=== PATIENT | female | born 1970 | race Caucasian/White ===

== ENCOUNTER 2022-10-23 19:38 | Inpatient (IN) | payer OTHER, SELFPAY ==
[2022-10-23 20:05] VITALS: BP 129/77; PULSE 72; RESP 18; TEMP 36.6; BMI 33.4
--- NOTE | 2022-10-23 21:21 | PC.ADMIT ---
Delfina is being admitted from [facility] on a CV for Unspecified Depressive disorder. She is calm and cooperative and oriented X's4. Her mood is labile and that patient was observed crying intermittently during the admission. she denies suicidal/homicidal ideation but endorses depression/anxiety and visual/auditory hallucinations. I wasn't sure what I was seeing. I saw an old boy friend of mine from 30 years ago and he was beautiful. Then I heard some of the voices get really mad because I was happy that I had seen him. I really don't know what's going on I don't know if this is like a vision sent from God or if my thyroid is causing me to have these hallucinations. I've never experienced anything like this before. patient is religiously preoccupied asking if we have [employer] Counselor's here, because I really want to talk to someone who understands the Bible Patient also stated that she used to have a counselor but it didn't work out because she wasn't a [employer]ism so we didn't see eye to eye light bruising noted to her bilateral forearms, patient stated that they did that to me in the ambulance patient oriented to the unit, Care plan initiated
[2022-10-24 07:54] LABS: Estimated Average Glucose 114 mg/dL; Hemoglobin A1c % 5.6 % (<6.0)
[2022-10-24 08:11] LABS: Alanine Aminotransferase 9 U/L (0-31); Albumin Level 3.9 g/dL (3.5-5.0); Alkaline Phosphatase 118 U/L (39-117); Anion Gap 11 (12-20); Aspartate Amino Transferase 13 U/L (5-31); Bilirubin Total 0.2 mg/dL (0.0-1.0); Blood Urea Nitrogen 22 mg/dL (9-16); Calcium 9.4 mg/dL (8.4-10.2); Carbon Dioxide 24 mmol/L (22-29); Chloride 110 mmol/L (96-108); Cholesterol 206 mg/dL (<200); Creatinine Clr Calc Pharmacy 84.4; Estimated Glomerular Filt Rate > 60; Glucose Fasting 106 mg/dL (60-99); HDL Cholesterol 52 mg/dL (>40); LDL Cholesterol Calculated 134 mg/dL (<100); Potassium 4.1 mmol/L (3.3-5.1); Sodium 141 mmol/L (135-145); Total Protein 6.7 g/dL (6.5-8.0); Triglycerides 102 mg/dL (<150)
[2022-10-24 08:27] LABS: Thyroid Stimulating Hormone 0.51 uIU/mL (0.32-4.0)
[2022-10-24 08:30] VITALS: BP 133/75; PULSE 74; RESP 16; TEMP 36.5; O2SAT 97
[2022-10-24 08:38] LABS: Vitamin B12 884 pg/mL (200-900)
[2022-10-24] MEDS: Lidocaine 4 % Patch ADH..PATCH 1 PATCH TRANSDERMA (09:46)
[2022-10-24] MEDS: lisinopriL 5 MG TABLET PO (09:48)
[2022-10-24] MEDS: Cyanocobalamin (Vitamin B-12) 1,000 MCG TABLET 1000 MCG PO (09:48)
[2022-10-24] MEDS: DULoxetine HCl 60 MG CAPSULE.DR PO (09:48)
[2022-10-24] MEDS: Famotidine 20 MG TABLET PO ×2 (09:48→21:34)
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
[2022-10-24] MEDS: Cholecalciferol (Vitamin D3) 25 MCG TABLET 50 MCG PO (09:49)
[2022-10-24] MEDS: Atorvastatin Calcium 20 MG TABLET PO (09:50)
--- NOTE | 2022-10-24 10:46 | P.CONHOSP_ITS ---
History of Present Illness Data of Consult Service Date: 10/24/22 Primary Care Provider: Unknown Physician HPI 52-year-old woman with history of hypertension, hyperlipidemia, depression and anxiety admitted to for psychiatric care. She reported complaints of right ear pain without fever, chills, nausea, vomiting, diarrhea. , no fever. BMP within normal limits Review of Systems 2 Review of Systems: Denies any recent fever chills or decrease in appetite respiratory denies shortness of breath or cough cardiovascular and chest pain gastrointestinal denied nausea, vomiting, diarrhea genitourinary denied burning with urination neuropsych denies any weakness or seizures all other systems reviewed are negative [facility] Medical History (Updated 11/07/22 @ 00:02 by Zena Monroy) Anxiety Depression Hyperlipidemia Hypertension Pertinent family history: no cardiac disease Surgical History (Updated 10/24/22 @ 11:06 by Tana Mccormack NP) S/P tubal ligation H/O hernia repair Social History (Updated 10/24/22 @ 11:06 by Tana Mccormack NP) Household Members: None Housing: House Do you presently have visiting nurse or other home services: No Patient Tobacco Use Status: Current someday Tobacco user Tobacco use type: Cigarette Cigarettes Per Day: 3 e-Cigarette/Vaping Use: Currently Using Second Hand Smoke Exposure: Yes service: No Sexual orientation: Straight/Heterosexual Meds Allergies Allergy/AdvReac Type Severity Reaction Status Date / Time No Known Allergies Allergy Verified 10/23/22 21:15 Active Medications: Current Medications Acetaminophen (Acetaminophen 325 Mg Tablet) 650 mg PO Q6H PRN PRN Reason: Headache/Pain Mild Scale (1-3) Al Hydroxide/Mg Hydroxide (Magnesium Hydrox/Alum Hydrox 30 Ml Oral.Susp) 30 ml PO Q6H PRN PRN Reason: Heartburn/Nausea Atorvastatin Calcium (Atorvastatin Calcium 20 Mg Tablet) 20 mg PO DAILY [facility] Last Admin: 10/24/22 09:50 Dose: 20 mg Cyanocobalamin (Cyanocobalamin (Vitamin B-12) 1,000 Mcg Tablet) 1,000 mcg PO DAILY [facility] Last Admin: 10/24/22 09:48 Dose: 1,000 mcg Duloxetine HCl (Duloxetine Hcl 60 Mg Capsule.Dr) 60 mg PO DAILY [facility] Last Admin: 10/24/22 09:48 Dose: 60 mg Famotidine (Famotidine 20 Mg Tablet) 20 mg PO BID [facility] Last Admin: 10/24/22 09:48 Dose: 20 mg Hydroxyzine HCl (Hydroxyzine Hcl 25 Mg Tablet) 25 mg PO TID PRN PRN Reason: Anxiety Lidocaine (Lidocaine 4 % Patch Adh..Patch) 1 patch TRANSDERMA DAILY [facility]; Protocol Last Admin: 10/24/22 09:46 Dose: 1 patch Lisinopril (Lisinopril 5 Mg Tablet) 5 mg PO DAILY [facility]; Protocol Last Admin: 10/24/22 09:48 Dose: 5 mg Magnesium Hydroxide (Milk Of Magnesia 30 Ml Oral.Susp) 30 ml PO DAILY PRN PRN Reason: Constipation Trazodone HCl (Trazodone Hcl 50 Mg Tablet) 50 mg PO BEDTIME MRX1 PRN PRN Reason: Insomnia Vitamin D (Cholecalciferol (Vitamin D3) 25 Mcg Tablet) 50 mcg PO DAILY [facility] Last Admin: 10/24/22 09:49 Dose: 50 mcg Home Medications Medication Instructions Recorded Confirmed Last Taken Type atorvastatin 20 mg tablet 20 mg PO DAILY 10/23/22 10/23/22 Unknown History cholecalciferol (vitamin D3) 50 50 mcg PO DAILY 10/23/22 10/23/22 Unknown History mcg (2,000 unit) capsule cyanocobalamin (vitamin B-12) 1,000 mcg PO DAILY 10/23/22 10/23/22 Unknown History 1,000 mcg tablet duloxetine 60 mg capsule,delayed 60 mg PO DAILY 10/23/22 10/23/22 Unknown History release famotidine 20 mg tablet 20 mg PO BID 10/23/22 10/23/22 Unknown History hydroxyzine HCl 25 mg tablet 25 mg PO TID PRN Anxiety 10/23/22 10/23/22 Unknown History lisinopril 5 mg tablet 5 mg PO DAILY 10/23/22 10/23/22 Unknown History Physical Exam 2 Vital Signs and Narrative: Vital Signs: Last Vital Signs Temp 97.9 F 10/23/22 20:05 Pulse 72 10/23/22 20:05 Resp 18 10/23/22 20:05 BP 129/77 10/23/22 20:05 O2 Flow Rate 98 10/23/22 20:05 BMI result Body Mass Index 33.4 Appearing in no acute distress lung sounds are clear to auscultation heart regular rate rhythm, clear S1, S2 positive bowel sounds, abdomen is soft, nontender neuro patient is alert x3, no focal deficits right ear no erythema, very minimal amount of wax noted, tympanic membrane intact with no drainage Cranial nerves 2-12 are grossly intact without focal deficits Results Labs 10/24/22 07:21 Labs: Laboratory Results - last 24 hr 10/24/22 07:21 Anion Gap 11 L Estim Creat Clear Calc 84.4 Estimated GFR > 60 Fasting Glucose 106 H Estimat Average Glucose 114 Hemoglobin A1c % 5.6 Calcium 9.4 Total Bilirubin 0.2 AST 13 ALT 9 Alkaline Phosphatase 118 H Total Protein 6.7 Albumin 3.9 Triglycerides 102 Cholesterol 206 H LDL Cholesterol, Calc 134 H HDL Cholesterol 52 Vitamin B12 884 Folate 9.0 TSH 0.51 Assessment and Plan (1) Hypertension: Status: Acute Plan 52-year-old woman admitted to [facility] for psychiatric care Mental health Management as per psychiatric team Right ear pain otoscopic exam negative May use warm packs or Tylenol Hypertension Stable blood pressure Continue lisinopril Hyperlipidemia Continue statin Time Spent With Patient Time: Total time managing care of this patient today ____ minutes. Assessment and Plan (1) Hypertension: Status: Acute Plan 52-year-old woman admitted to [facility] for psychiatric care Mental health Management as per psychiatric team Right ear pain otoscopic exam negative May use warm packs or Tylenol Hypertension Stable blood pressure Continue lisinopril Hyperlipidemia Continue statin Time Spent With Patient Time: Total time managing care of this patient today ____ minutes.
[2022-10-24] MEDS: risperiDONE 1 MG TABLET PO ×2 (13:40→21:35)
[2022-10-24 18:00] VITALS: BP 97/52; PULSE 75; RESP 18; TEMP 36.2; O2SAT 94
--- NOTE | 2022-10-24 19:03 | PC.NURSE ---
Patient denied having SI/HI or VH when asked by this narrative writer. She reported she has voices but they were not commanding here to do anything and tolerable. Patient seen by hospitalist this shift see progress note for 10/24/22 for details. Patient c/o of lower back pain and r ear discomfort. Tylenol offered for both, but patient declined. Hot pack utilized for 4/10 right ear pain with relief reported of 1/10 after use. Patient educated about using prn APAP for pain. Per patient, I don't want to use that, thanks. I'm going to rest in bed. No futher c/o voiced. Patient medication compliant. She is making her needs known appropriately. Patient did not shower this shift, but reported she will later. No unsafe behavior noted.
[2022-10-24] MEDS: LORazepam 0.5 MG TABLET PO (21:34)
[2022-10-25 06:00] VITALS: BP 112/67; PULSE 106; RESP 16; TEMP 36.6; O2SAT 98
[2022-10-25] MEDS: Lidocaine 4 % Patch ADH..PATCH 1 PATCH TRANSDERMA (08:12)
[2022-10-25] MEDS: Famotidine 20 MG TABLET PO ×2 (08:14→22:21)
[2022-10-25] MEDS: Atorvastatin Calcium 20 MG TABLET PO (08:15)
[2022-10-25] MEDS: risperiDONE 1 MG TABLET PO (08:15)
[2022-10-25] MEDS: Cholecalciferol (Vitamin D3) 25 MCG TABLET 50 MCG PO (08:15)
[2022-10-25] MEDS: Cyanocobalamin (Vitamin B-12) 1,000 MCG TABLET 1000 MCG PO (08:15)
[2022-10-25] MEDS: DULoxetine HCl 60 MG CAPSULE.DR PO (08:16)
[2022-10-25] MEDS: Acetaminophen 325 MG TABLET 650 MG PO (08:16)
[2022-10-25] MEDS: lisinopriL 5 MG TABLET PO (08:53)
[2022-10-25 09:30] VITALS: BP 105/60; PULSE 78
--- NOTE | 2022-10-25 14:04 | PC.NURSE ---
Addendum entered by Soo Moreno RN 10/25/22 18:29: Patient c/o itch with runny nose to T/W. Delfina appeared anxious and asked for allergy medication. Atarax 25mg given with effect pending. Gudelia Mckeon [employer]WER notified at 1809. Per BLOCKER AND SEWER, Yes will add flonase. No issues noted or reported by patient. Original Note: Patient alert Ox3, but reported to T/W not sure why she was here or why. Patient c/o of dizziness with feeling nausea at the start of shift. She reported that she woke up feeling this way, but was able to ambulate with a steady gait. Vitals obtained but patient declined to have standing b/p due to feeling nausea. B/p 112/57 with heart rate of 106. Patient denied having a h/a but did report having lower back pain. She utilized her PRN tylenol 650mg at 0816 wtih effect reported shortly after. Patient given 240 ml of eduard alexa to drink and encourage to take po fluids. Patient also took her scheduled pepcid, then ate her breakfast without issues. Gudelia Mckeon [employer] aware and patient had no further c/o of dizziness noted.. B/p rechecked and 105/60. Patient appears stable and ambulating ad liza without issues.
[2022-10-25] MEDS: hydrOXYzine HCL 25 MG TABLET PO (17:58)
--- NOTE | 2022-10-25 18:39 | P.PNPSI_ITS ---
Subjective Subjective Date of Service: 10/25/22 Reason For Visit: Unspecified Depressive Disorder Brief Psychotic Di Subjective Notes: Conditional Voluntary Interim History: Pt presents as more clear today. She was surprised to hear how her daughter found her and her concerns. She reports hearing voices, but less today. She denies Si/HI. She appears less tearful. She reports she slept good. She also reports dizziness, lightheaded. SBP lower than her usual and suspect some ortho hotn s/s to risperidone- will lower dose. Review of Systems Review of Systems No chest pain. No changes in vision. No diarrhea or loose stools. No SOB. No coughing. Mental Status Exam Mental Status Exam Narrative: Appearance: wearing hospital gown, fair hygiene, in NAD Behavior:guarded Psychomotor:some retardation noted Speech:mostly clear, some delayed in response, spontaneous TP:single words, mostly linear TC:mandaeism preoccupation, feeling sad Mood: sad Affect: tearful SI: denies HI: denies VH/AH: hearing voices of God Delusions: mandaeism preoccupations, not fully forthcoming with extend of delusional content. Insight/judgment: fair x 2. Memory/cog: alert, oriented x 3. Diagnostics Vital Signs (24Hr): Vital Signs - 24 hr 10/25/22 06:00 10/25/22 09:30 Temperature 97.9 F Pulse Rate 106 H 78 Respiratory Rate 16 Blood Pressure 112/67 105/60 Pulse Oximetry 98 Oxygen Delivery Method Room Air BMI result Body Mass Index 33.4 Labs 10/24/22 07:21 Labs: Laboratory Results - last 48 hr 10/24/22 07:21 Sodium 141 Potassium 4.1 Chloride 110 H Carbon Dioxide 24 Anion Gap 11 L BUN 22 H Creatinine 0.76 Estim Creat Clear Calc 84.4 Estimated GFR > 60 Fasting Glucose 106 H Estimat Average Glucose 114 Hemoglobin A1c % 5.6 Calcium 9.4 Total Bilirubin 0.2 AST 13 ALT 9 Alkaline Phosphatase 118 H Total Protein 6.7 Albumin 3.9 Triglycerides 102 Cholesterol 206 H LDL Cholesterol, Calc 134 H HDL Cholesterol 52 Vitamin B12 884 Folate 9.0 TSH 0.51 Medications Medications Current Medications Acetaminophen (Acetaminophen 325 Mg Tablet) 650 mg PO Q6H PRN PRN Reason: Headache/Pain Mild Scale (1-3) Last Admin: 10/25/22 08:16 Dose: 650 mg Al Hydroxide/Mg Hydroxide (Magnesium Hydrox/Alum Hydrox 30 Ml Oral.Susp) 30 ml PO Q6H PRN PRN Reason: Heartburn/Nausea Atorvastatin Calcium (Atorvastatin Calcium 20 Mg Tablet) 20 mg PO DAILY [facility] Last Admin: 10/25/22 08:15 Dose: 20 mg Cyanocobalamin (Cyanocobalamin (Vitamin B-12) 1,000 Mcg Tablet) 1,000 mcg PO DAILY [facility] Last Admin: 10/25/22 08:15 Dose: 1,000 mcg Duloxetine HCl (Duloxetine Hcl 60 Mg Capsule.Dr) 60 mg PO DAILY [facility] Last Admin: 10/25/22 08:16 Dose: 60 mg Famotidine (Famotidine 20 Mg Tablet) 20 mg PO BID [facility] Last Admin: 10/25/22 08:14 Dose: 20 mg Hydroxyzine HCl (Hydroxyzine Hcl 25 Mg Tablet) 25 mg PO TID PRN PRN Reason: Anxiety Last Admin: 10/25/22 17:58 Dose: 25 mg Lidocaine (Lidocaine 4 % Patch Adh..Patch) 1 patch TRANSDERMA DAILY [facility]; Protocol Last Admin: 10/25/22 08:12 Dose: 1 patch Lisinopril (Lisinopril 5 Mg Tablet) 5 mg PO DAILY [facility]; Protocol Last Admin: 10/25/22 08:53 Dose: 5 mg Lorazepam (Lorazepam 0.5 Mg Tablet) 0.5 mg PO BID PRN PRN Reason: Anxiety Magnesium Hydroxide (Milk Of Magnesia 30 Ml Oral.Susp) 30 ml PO DAILY PRN PRN Reason: Constipation Olanzapine (Olanzapine 5 Mg Tablet) 5 mg PO Q6H PRN PRN Reason: agitation Risperidone (Risperidone 0.5 Mg Tablet) 0.5 mg PO BID [facility] Trazodone HCl (Trazodone Hcl 50 Mg Tablet) 50 mg PO BEDTIME PRN PRN Reason: Insomnia Vitamin D (Cholecalciferol (Vitamin D3) 25 Mcg Tablet) 50 mcg PO DAILY [facility] Last Admin: 10/25/22 08:15 Dose: 50 mcg Allergies Allergies Allergy/AdvReac Type Severity Reaction Status Date / Time No Known Allergies Allergy Verified 10/23/22 21:15 Assessment & Plan Assessment & Plan (1) Severe manic bipolar 1 disorder with psychotic behavior: Status: Acute Code(s): F31.2 - Bipolar disorder, current episode manic severe with psychotic features Plan Ms. Rangel is a 52 year-old woman with hx of Bipolar disorder who was brought via EMS to [facility] ED due to increased mandaeism preoccupations, disorganized speech after daughter went to pt's house and pt had shades down, house was disorganized (which daughter reported uncharacteristic of her), and pt was staring with minimal verbalization.Utox positive for cannabinoids, which she reports using recently at suggestion of her daughter to relax . Pt has prior hx of of psychosis, depression with mandaeism preoccupation. She presents with mixed episode. Pt with hx of bipolar, may not have been treated properly as mostly prescribed antidepressants which was exacerbated by THC use. We discussed risks, benefits and alternative treatment options. Pt agreed to start risperidone. May consider mood stabilizer. PLAN 10/25- will lower risperidone d/t ortho hotn, if continues to report dizziness may want to consider different antipsychotic. Flonase for stuffy nose. Patient educated on: diagnosis and medication risk/benefits Informed Consent: understands Reason for continued inpatient stay Substantial Risk for: harm to self Time Spent With Patient Time: Total time managing care of this patient today __40__ minutes.
[2022-10-25] MEDS: Fluticasone Propionate Nasal 16 GM SPRAY 1 SPRAY NOSTRIL-B ×2 (19:13→22:20)
[2022-10-25 22:15] VITALS: BP 102/58; PULSE 110; TEMP 36.6; O2SAT 95
[2022-10-25] MEDS: risperiDONE 0.5 MG TABLET PO (22:21)
[2022-10-26 08:38] VITALS: BP 100/59; PULSE 93; RESP 18; TEMP 36.1; O2SAT 96
[2022-10-26] MEDS: DULoxetine HCl 60 MG CAPSULE.DR PO (08:39)
[2022-10-26] MEDS: Famotidine 20 MG TABLET PO ×2 (08:39→22:12)
[2022-10-26] MEDS: lisinopriL 5 MG TABLET PO (08:40)
[2022-10-26] MEDS: risperiDONE 0.5 MG TABLET PO (08:40)
[2022-10-26] MEDS: Cyanocobalamin (Vitamin B-12) 1,000 MCG TABLET 1000 MCG PO (08:40)
[2022-10-26] MEDS: Cholecalciferol (Vitamin D3) 25 MCG TABLET 50 MCG PO (08:40)
[2022-10-26] MEDS: Atorvastatin Calcium 20 MG TABLET PO (08:40)
[2022-10-26] MEDS: Lidocaine 4 % Patch ADH..PATCH 1 PATCH TRANSDERMA (08:42)
[2022-10-26] MEDS: Fluticasone Propionate Nasal 16 GM SPRAY 1 SPRAY NOSTRIL-B ×2 (09:00→22:12)
--- NOTE | 2022-10-26 13:21 | HO.PSYCHPN ---
Subjective Subjective Date of Service: 10/26/22 Reason For Visit: Unspecified Depressive Disorder Brief Psychotic Di Subjective Notes: Conditional Voluntary Interim History: Reviewed in team and . Patient reports feeling better today. Patient stated, I took a shower, I ate breakfast and taking my meds . Patient stated, I was seeing spirits but I'm no longer seeing them. I used to see black shadows 5 years ago; they never bothered me. Sometimes I hear voices but the voices protect me and would tell me if I'm in danger. They happen now and then . Pt denies SI/HI/VH/AH at this time. Patient reports she would like a referral to a Hindu psychiatrist and therapist ; drug abuse social worker aware. Medication Compliance: Yes Side effects from medications: No Attending Groups: Intermittent Review of Systems Constitutional: Reports as per HPI Eyes: Reports as per HPI Reports as per HPI Cardiovascular: Reports as per HPI Respiratory: Reports as per HPI Gastrointestinal: Reports as per HPI Genitourinary: Reports as per HPI Musculoskeletal: Reports as per HPI Skin/Breast: Reports as per HPI Reports as per HPI Psychiatric: Reports as per HPI Endocrine: Reports as per HPI Hematologic/Lymphatic: Reports as per HPI Allergic/Immunologic: Reports as per HPI Mental Status Exam Mental Status Exam Narrative: Pt is alert and oriented; behavior is cooperative, calm and guarded; dressed in casual attire; mood is described as better ; eye contact appropriate; Speech is normal rate, volume and prosody and not pressured; no psychomotor agitation/retardation present; thought process is organized and goal directed; Thought content is on tx; reports some christianity delusions; denies SI/HI. There is no evidence of perceptual disturbance. Patients insight and judgment are poor but improving. Diagnostics Vital Signs (24Hr): Vital Signs - 24 hr 10/25/22 22:15 10/26/22 08:38 Temperature 97.8 F 97.0 F Pulse Rate 110 H 93 Respiratory Rate 18 Blood Pressure 102/58 L 100/59 L Pulse Oximetry 95 96 Oxygen Delivery Method Room Air Room Air BMI result Body Mass Index 33.4 Labs 10/24/22 07:21 Medications Medications Current Medications Acetaminophen (Acetaminophen 325 Mg Tablet) 650 mg PO Q6H PRN PRN Reason: Headache/Pain Mild Scale (1-3) Last Admin: 10/25/22 08:16 Dose: 650 mg Al Hydroxide/Mg Hydroxide (Magnesium Hydrox/Alum Hydrox 30 Ml Oral.Susp) 30 ml PO Q6H PRN PRN Reason: Heartburn/Nausea Atorvastatin Calcium (Atorvastatin Calcium 20 Mg Tablet) 20 mg PO DAILY [facility] Last Admin: 10/26/22 08:40 Dose: 20 mg Cyanocobalamin (Cyanocobalamin (Vitamin B-12) 1,000 Mcg Tablet) 1,000 mcg PO DAILY [facility] Last Admin: 10/26/22 08:40 Dose: 1,000 mcg Duloxetine HCl (Duloxetine Hcl 60 Mg Capsule.Dr) 60 mg PO DAILY [facility] Last Admin: 10/26/22 08:39 Dose: 60 mg Famotidine (Famotidine 20 Mg Tablet) 20 mg PO BID [facility] Last Admin: 10/26/22 08:39 Dose: 20 mg Fluticasone Propionate (Fluticasone Propionate Nasal 16 Gm [place]) 1 spray NOSTRIL-B BID [facility] Last Admin: 10/26/22 09:00 Dose: 1 spray Hydroxyzine HCl (Hydroxyzine Hcl 25 Mg Tablet) 25 mg PO TID PRN PRN Reason: Anxiety Last Admin: 10/25/22 17:58 Dose: 25 mg Lidocaine (Lidocaine 4 % Patch Adh..Patch) 1 patch TRANSDERMA DAILY [facility]; Protocol Last Admin: 10/26/22 08:42 Dose: 1 patch Lisinopril (Lisinopril 5 Mg Tablet) 5 mg PO DAILY [facility]; Protocol Last Admin: 10/26/22 08:40 Dose: 5 mg Lorazepam (Lorazepam 0.5 Mg Tablet) 0.5 mg PO BID PRN PRN Reason: Anxiety Magnesium Hydroxide (Milk Of Magnesia 30 Ml Oral.Susp) 30 ml PO DAILY PRN PRN Reason: Constipation Risperidone (Risperidone 1 Mg Tablet) 1 mg PO BEDTIME [facility] Trazodone HCl (Trazodone Hcl 50 Mg Tablet) 50 mg PO BEDTIME PRN PRN Reason: Insomnia Vitamin D (Cholecalciferol (Vitamin D3) 25 Mcg Tablet) 50 mcg PO DAILY [facility] Last Admin: 10/26/22 08:40 Dose: 50 mcg Allergies Allergies Allergy/AdvReac Type Severity Reaction Status Date / Time No Known Allergies Allergy Verified 10/23/22 21:15 Assessment & Plan Assessment & Plan (1) Severe manic bipolar 1 disorder with psychotic behavior: Status: Acute Code(s): F31.2 - Bipolar disorder, current episode manic severe with psychotic features Plan Ms. Rangel is a 52 year-old woman with hx of Bipolar disorder who was brought via EMS to [facility] ED due to increased christianity preoccupations, disorganized speech after daughter went to pt's house and pt had shades down, house was disorganized (which daughter reported uncharacteristic of her), and pt was staring with minimal verbalization.Utox positive for cannabinoids, which she reports using recently at suggestion of her daughter to relax . Pt has prior hx of of psychosis, depression with christianity preoccupation. She presents with mixed episode. Pt with hx of bipolar, may not have been treated properly as mostly prescribed antidepressants which was exacerbated by THC use. We discussed risks, benefits and alternative treatment options. Pt agreed to start risperidone. May consider mood stabilizer. PLAN 10/25- will lower risperidone d/t ortho hotn, if continues to report dizziness may want to consider different antipsychotic. Flonase for stuffy nose. 10/26: Patient reports feeling better today. Patient stated, I took a shower, I ate breakfast and taking my meds . Patient stated, I was seeing spirits but I'm no longer seeing them. I used to see black shadows 5 years ago; they never bothered me. Sometimes I hear voices but the voices protect me and would tell me if I'm in danger. They happen now and then . Pt denies SI/HI/VH/AH at this time. Patient reports she would like a referral to a Hindu psychiatrist and therapist ; drug abuse social worker aware. Pt asked for Risperidal to be changed to HS; dose change to 1mg PO bedtime. Pt educated regarding taking her time before standing and walking. Patient educated on: diagnosis, medication risk/benefits and therapeutic strategies Informed Consent: understands Reason for continued inpatient stay Substantial Risk for: med/psych decompensation Time Spent With Patient Time: Total time managing care of this patient today _30___ minutes.
[2022-10-26 22:07] VITALS: BP 93/52; PULSE 79; TEMP 36.6; O2SAT 98
[2022-10-26 22:09] VITALS: BP 89/53; PULSE 80
[2022-10-26 22:10] VITALS: BP 94/55; PULSE 76
[2022-10-26] MEDS: risperiDONE 1 MG TABLET PO (22:12)
[2022-10-27 08:36] VITALS: BP 107/60; PULSE 83; RESP 18; TEMP 36.4; O2SAT 95
[2022-10-27] MEDS: Cyanocobalamin (Vitamin B-12) 1,000 MCG TABLET 1000 MCG PO (08:37)
[2022-10-27] MEDS: DULoxetine HCl 60 MG CAPSULE.DR PO (08:37)
[2022-10-27] MEDS: lisinopriL 5 MG TABLET PO (08:37)
[2022-10-27] MEDS: Cholecalciferol (Vitamin D3) 25 MCG TABLET 50 MCG PO (08:37)
[2022-10-27] MEDS: Atorvastatin Calcium 20 MG TABLET PO (08:37)
[2022-10-27] MEDS: Famotidine 20 MG TABLET PO ×2 (08:37→20:59)
[2022-10-27] MEDS: Lidocaine 4 % Patch ADH..PATCH 1 PATCH TRANSDERMA (08:38)
--- NOTE | 2022-10-27 08:57 | HO.PSYCHPN ---
Subjective Subjective Date of Service: 10/27/22 Reason For Visit: Unspecified Depressive Disorder Brief Psychotic Di Subjective Notes: Conditional Voluntary Interim History: Reviewed in team and . Patient c/o stuffy nose, sore throat and dizziness. Covid test ordered. Results pending. She reports feeling good mentally ; pt stated, I saw spirits at home but not here. The voices and seeing spirits all started in 2014, a year after my grandchild . I've only had anxiety and depression in my life. I think smoking marijuana did this to me . Pt is requesting to speak with pastoral services; RN notified. denies SI/HI/VH/AH. Medication Compliance: Yes Side effects from medications: No Attending Groups: Intermittent Review of Systems Review of Systems No chest pain. No changes in vision. No diarrhea or loose stools. No SOB. No coughing. Constitutional: Reports as per HPI Eyes: Reports as per HPI Reports as per HPI Cardiovascular: Reports as per HPI Respiratory: Reports as per HPI Gastrointestinal: Reports as per HPI Genitourinary: Reports as per HPI Musculoskeletal: Reports as per HPI Skin/Breast: Reports as per HPI Reports as per HPI Psychiatric: Reports as per HPI Endocrine: Reports as per HPI Hematologic/Lymphatic: Reports as per HPI Allergic/Immunologic: Reports as per HPI Mental Status Exam Mental Status Exam Narrative: Pt is alert and oriented; behavior is cooperative, calm; dressed in casual attire; mood is described as better ; eye contact appropriate; Speech is normal rate, volume and prosody and not pressured; no psychomotor agitation/retardation present; thought process is organized and goal directed; Thought content is on tx; reports some congregation delusions; denies SI/HI. There is no evidence of perceptual disturbance. Patients insight and judgment are poor but improving. Diagnostics Vital Signs (24Hr): Vital Signs - 24 hr 10/26/22 22:07 10/26/22 22:09 10/26/22 22:10 Temperature 97.8 F Pulse Rate 79 80 76 Respiratory Rate Blood Pressure 93/52 L 89/53 L 94/55 L Pulse Oximetry 98 Oxygen Delivery Method Room Air 10/27/22 08:36 Temperature 97.6 F Pulse Rate 83 Respiratory Rate 18 Blood Pressure 107/60 Pulse Oximetry 95 Oxygen Delivery Method Room Air BMI result Body Mass Index 33.4 Labs 10/24/22 07:21 Medications Medications Current Medications Acetaminophen (Acetaminophen 325 Mg Tablet) 650 mg PO Q6H PRN PRN Reason: Headache/Pain Mild Scale (1-3) Last Admin: 10/25/22 08:16 Dose: 650 mg Al Hydroxide/Mg Hydroxide (Magnesium Hydrox/Alum Hydrox 30 Ml Oral.Susp) 30 ml PO Q6H PRN PRN Reason: Heartburn/Nausea Atorvastatin Calcium (Atorvastatin Calcium 20 Mg Tablet) 20 mg PO DAILY [facility] Last Admin: 10/27/22 08:37 Dose: 20 mg Cyanocobalamin (Cyanocobalamin (Vitamin B-12) 1,000 Mcg Tablet) 1,000 mcg PO DAILY [facility] Last Admin: 10/27/22 08:37 Dose: 1,000 mcg Duloxetine HCl (Duloxetine Hcl 60 Mg Capsule.Dr) 60 mg PO DAILY [facility] Last Admin: 10/27/22 08:37 Dose: 60 mg Famotidine (Famotidine 20 Mg Tablet) 20 mg PO BID [facility] Last Admin: 10/27/22 08:37 Dose: 20 mg Fluticasone Propionate (Fluticasone Propionate Nasal 16 Gm [place]) 1 spray NOSTRIL-B BID [facility] Last Admin: 10/26/22 22:12 Dose: 1 spray Hydroxyzine HCl (Hydroxyzine Hcl 25 Mg Tablet) 25 mg PO TID PRN PRN Reason: Anxiety Last Admin: 10/25/22 17:58 Dose: 25 mg Lidocaine (Lidocaine 4 % Patch Adh..Patch) 1 patch TRANSDERMA DAILY [facility]; Protocol Last Admin: 10/27/22 08:38 Dose: 1 patch Lisinopril (Lisinopril 5 Mg Tablet) 5 mg PO DAILY [facility]; Protocol Last Admin: 10/27/22 08:37 Dose: 5 mg Lorazepam (Lorazepam 0.5 Mg Tablet) 0.5 mg PO BID PRN PRN Reason: Anxiety Magnesium Hydroxide (Milk Of Magnesia 30 Ml Oral.Susp) 30 ml PO DAILY PRN PRN Reason: Constipation Risperidone (Risperidone 1 Mg Tablet) 1 mg PO BEDTIME [facility] Last Admin: 10/26/22 22:12 Dose: 1 mg Trazodone HCl (Trazodone Hcl 50 Mg Tablet) 50 mg PO BEDTIME PRN PRN Reason: Insomnia Vitamin D (Cholecalciferol (Vitamin D3) 25 Mcg Tablet) 50 mcg PO DAILY [facility] Last Admin: 10/27/22 08:37 Dose: 50 mcg Allergies Allergies Allergy/AdvReac Type Severity Reaction Status Date / Time No Known Allergies Allergy Verified 10/23/22 21:15 Assessment & Plan Assessment & Plan (1) Severe manic bipolar 1 disorder with psychotic behavior: Status: Acute Code(s): F31.2 - Bipolar disorder, current episode manic severe with psychotic features Plan Ms. Rangel is a 52 year-old woman with hx of Bipolar disorder who was brought via EMS to [facility] ED due to increased congregation preoccupations, disorganized speech after daughter went to pt's house and pt had shades down, house was disorganized (which daughter reported uncharacteristic of her), and pt was staring with minimal verbalization.Utox positive for cannabinoids, which she reports using recently at suggestion of her daughter to relax . Pt has prior hx of of psychosis, depression with congregation preoccupation. She presents with mixed episode. Pt with hx of bipolar, may not have been treated properly as mostly prescribed antidepressants which was exacerbated by THC use. We discussed risks, benefits and alternative treatment options. Pt agreed to start risperidone. May consider mood stabilizer. PLAN 10/25- will lower risperidone d/t ortho hotn, if continues to report dizziness may want to consider different antipsychotic. Flonase for stuffy nose. 10/26: Patient reports feeling better today. Patient stated, I took a shower, I ate breakfast and taking my meds . Patient stated, I was seeing spirits but I'm no longer seeing them. I used to see black shadows 5 years ago; they never bothered me. Sometimes I hear voices but the voices protect me and would tell me if I'm in danger. They happen now and then . Pt denies SI/HI/VH/AH at this time. Patient reports she would like a referral to a Roman [employer] psychiatrist and therapist ; social work msw aware. Pt asked for Risperidal to be changed to HS; dose change to 1mg PO bedtime. Pt educated regarding taking her time before standing and walking. 10/27: Patient c/o stuffy nose, sore throat and dizziness. Covid test ordered. Results pending. She reports feeling good mentally ; pt stated, I saw spirits at home but not here. The voices and seeing spirits all started in 2014, a year after my grandchild . I've only had anxiety and depression in my life. I think smoking marijuana did this to me . Pt is requesting to speak with pastoral services; RN notified. denies SI/HI/VH/AH. Patient educated on: diagnosis, medication risk/benefits, substance abuse and therapeutic strategies Informed Consent: understands Reason for continued inpatient stay Substantial Risk for: med/psych decompensation Time Spent With Patient Time: Total time managing care of this patient today _30___ minutes.
[2022-10-27] MEDS: Fluticasone Propionate Nasal 16 GM SPRAY 1 SPRAY NOSTRIL-B ×2 (09:23→21:00)
[2022-10-27 11:08] LABS: COVID-19 Test Positive (Negative); IDNOW Serial# BCCEAD1C
[2022-10-27] MEDS: LORazepam 0.5 MG TABLET PO (20:59)
[2022-10-27] MEDS: hydrOXYzine HCL 25 MG TABLET PO (20:59)
[2022-10-27] MEDS: risperiDONE 1 MG TABLET PO (21:00)
[2022-10-27 22:22] VITALS: BP 109/65; PULSE 89; RESP 16; TEMP 36.2; O2SAT 99
[2022-10-28 08:45] VITALS: BP 90/60; PULSE 76; RESP 16; TEMP 37; O2SAT 95
[2022-10-28] MEDS: Famotidine 20 MG TABLET PO ×2 (09:06→21:29)
[2022-10-28] MEDS: Atorvastatin Calcium 20 MG TABLET PO (09:06)
[2022-10-28] MEDS: Cholecalciferol (Vitamin D3) 25 MCG TABLET 50 MCG PO (09:07)
[2022-10-28] MEDS: Cyanocobalamin (Vitamin B-12) 1,000 MCG TABLET 1000 MCG PO (09:08)
[2022-10-28] MEDS: Fluticasone Propionate Nasal 16 GM SPRAY 1 SPRAY NOSTRIL-B ×2 (09:08→21:30)
[2022-10-28] MEDS: DULoxetine HCl 60 MG CAPSULE.DR PO (09:08)
--- NOTE | 2022-10-28 17:52 | HO.PSYCHPN ---
Subjective Subjective Date of Service: 10/28/22 Reason For Visit: Unspecified Depressive Disorder Brief Psychotic Di Subjective Notes: Conditional Voluntary Healthcare Proxy: No Guardianship: No Interim History: Pt less preoccupied with spiritual connection s voices gives clear hx good response to duloxitine but recently had been using marijuana vaping and began to have [employer] anxiety feeling better has covid pos sore throat Medication Compliance: Yes Attending Groups: No Review of Systems Acute medical concerns: Yes covid Medical Review of Systems: changed Review of Systems: sore throat minimal cough Mental Status Exam Mental Status Exam Narrative: Pt is alert and oriented; behavior is cooperative, calm; dressed in casual attire; mood is described as better ; eye contact appropriate; Speech is normal rate, volume and prosody and not pressured; no psychomotor agitation/retardation present; thought process is organized and goal directed; Thought content is on tx; reports some buddhism proccupation decreased ; denies SI/HI. There is no evidence of perceptual disturbance. Patients insight and judgment are improving. Feels her sx related to marijuana use Diagnostics Vital Signs (24Hr): Vital Signs - 24 hr 10/27/22 22:22 10/28/22 08:45 Temperature 97.2 F 98.6 F Pulse Rate 89 76 Respiratory Rate 16 16 Blood Pressure 109/65 90/60 Pulse Oximetry 99 95 Oxygen Delivery Method Room Air Room Air BMI result Body Mass Index 33.4 Labs 10/24/22 07:21 Labs: Laboratory Results - last 48 hr 10/27/22 10:10 COVID-19 ([facility]) Positive A COVID-19 Clin Com See Note Medications Medications Current Medications Acetaminophen (Acetaminophen 325 Mg Tablet) 650 mg PO Q6H PRN PRN Reason: Headache/Pain Mild Scale (1-3) Last Admin: 10/25/22 08:16 Dose: 650 mg Al Hydroxide/Mg Hydroxide (Magnesium Hydrox/Alum Hydrox 30 Ml Oral.Susp) 30 ml PO Q6H PRN PRN Reason: Heartburn/Nausea Atorvastatin Calcium (Atorvastatin Calcium 20 Mg Tablet) 20 mg PO DAILY [facility] Last Admin: 10/28/22 09:06 Dose: 20 mg Benzocaine (Throat Lozenge, Medicated Lozenge) 1 lozenge MUCOUS MEM Q2H PRN PRN Reason: Sore Throat Cyanocobalamin (Cyanocobalamin (Vitamin B-12) 1,000 Mcg Tablet) 1,000 mcg PO DAILY [facility] Last Admin: 10/28/22 09:08 Dose: 1,000 mcg Duloxetine HCl (Duloxetine Hcl 60 Mg Capsule.Dr) 60 mg PO DAILY [facility] Last Admin: 10/28/22 09:08 Dose: 60 mg Famotidine (Famotidine 20 Mg Tablet) 20 mg PO BID [facility] Last Admin: 10/28/22 09:06 Dose: 20 mg Fluticasone Propionate (Fluticasone Propionate Nasal 16 Gm [place]) 1 spray NOSTRIL-B BID [facility] Last Admin: 10/28/22 09:08 Dose: 1 spray Hydroxyzine HCl (Hydroxyzine Hcl 25 Mg Tablet) 25 mg PO TID PRN PRN Reason: Anxiety Last Admin: 10/27/22 20:59 Dose: 25 mg Lidocaine (Lidocaine 4 % Patch Adh..Patch) 1 patch TRANSDERMA DAILY [facility]; Protocol Last Admin: 10/28/22 16:48 Dose: Not Given Lisinopril (Lisinopril 5 Mg Tablet) 5 mg PO DAILY [facility]; Protocol Last Admin: 10/28/22 09:07 Dose: Not Given Lorazepam (Lorazepam 0.5 Mg Tablet) 0.5 mg PO BID PRN PRN Reason: Anxiety Last Admin: 10/27/22 20:59 Dose: 0.5 mg Magnesium Hydroxide (Milk Of Magnesia 30 Ml Oral.Susp) 30 ml PO DAILY PRN PRN Reason: Constipation Risperidone (Risperidone 1 Mg Tablet) 1 mg PO BEDTIME [facility] Last Admin: 10/27/22 21:00 Dose: 1 mg Trazodone HCl (Trazodone Hcl 50 Mg Tablet) 50 mg PO BEDTIME PRN PRN Reason: Insomnia Vitamin D (Cholecalciferol (Vitamin D3) 25 Mcg Tablet) 50 mcg PO DAILY [facility] Last Admin: 10/28/22 09:07 Dose: 50 mcg Allergies Allergies Allergy/AdvReac Type Severity Reaction Status Date / Time No Known Allergies Allergy Verified 10/23/22 21:15 Assessment & Plan Assessment & Plan (1) Severe manic bipolar 1 disorder with psychotic behavior: Status: Acute Code(s): F31.2 - Bipolar disorder, current episode manic severe with psychotic features Plan Ms. Rangel is a 52 year-old woman with hx of Bipolar disorder who was brought via EMS to [facility] ED due to increased buddhism preoccupations, disorganized speech after daughter went to pt's house and pt had shades down, house was disorganized (which daughter reported uncharacteristic of her), and pt was staring with minimal verbalization.Utox positive for cannabinoids, which she reports using recently at suggestion of her daughter to relax . Pt has prior hx of of psychosis, depression with buddhism preoccupation. She presents with mixed episode. Pt with hx of bipolar, may not have been treated properly as mostly prescribed antidepressants which was exacerbated by THC use. We discussed risks, benefits and alternative treatment options. Pt agreed to start risperidone. May consider mood stabilizer. PLAN 10/25- will lower risperidone d/t ortho hotn, if continues to report dizziness may want to consider different antipsychotic. Flonase for stuffy nose. 10/26: Patient reports feeling better today. Patient stated, I took a shower, I ate breakfast and taking my meds . Patient stated, I was seeing spirits but I'm no longer seeing them. I used to see black shadows 5 years ago; they never bothered me. Sometimes I hear voices but the voices protect me and would tell me if I'm in danger. They happen now and then . Pt denies SI/HI/VH/AH at this time. Patient reports she would like a referral to a [facility] psychiatrist and therapist ; hospice social worker aware. Pt asked for Risperidal to be changed to HS; dose change to 1mg PO bedtime. Pt educated regarding taking her time before standing and walking. 10/27: Patient c/o stuffy nose, sore throat and dizziness. Covid test ordered. Results pending. She reports feeling good mentally ; pt stated, I saw spirits at home but not here. The voices and seeing spirits all started in 2014, a year after my grandchild . I've only had anxiety and depression in my life. I think smoking marijuana did this to me . Pt is requesting to speak with pastoral services; RN notified. denies SI/HI/VH/AH. 10/28/22 Pt does report he is to is history of schizophrenia in the family his sister ascribes her symptoms as of is hallucinations altered perceptions to marijuana she did have a similar experience a number of years ago after her granddaughter as she is able to work normally is and is generally feels that Cymbalta has helped her to feels better on Risperdal educated regarding risks of psychosis with marijuana especially given his positive family history of schizophrenia no clear manic symptoms by history So far no severe COVID symptoms Reason for continued inpatient stay Substantial Risk for: inability to function and rapid decompensation Time Spent With Patient Time: Total time managing care of this patient today ____ minutes.
[2022-10-28] MEDS: Throat Lozenge, Medicated LOZENGE 1 LOZENGE MUCOUS MEM ×2 (18:28→21:29)
[2022-10-28 20:55] VITALS: BP 125/73; PULSE 77; RESP 18; TEMP 36.2; O2SAT 97
[2022-10-28] MEDS: Acetaminophen 325 MG TABLET 650 MG PO (21:29)
[2022-10-28] MEDS: risperiDONE 1 MG TABLET PO (21:30)
[2022-10-29 06:00] VITALS: BP 122/78; PULSE 83; RESP 16; TEMP 36.5; O2SAT 98
[2022-10-29] MEDS: DULoxetine HCl 60 MG CAPSULE.DR PO (09:10)
[2022-10-29] MEDS: Cholecalciferol (Vitamin D3) 25 MCG TABLET 50 MCG PO (09:10)
[2022-10-29] MEDS: Cyanocobalamin (Vitamin B-12) 1,000 MCG TABLET 1000 MCG PO (09:10)
[2022-10-29] MEDS: Atorvastatin Calcium 20 MG TABLET PO (09:10)
[2022-10-29] MEDS: lisinopriL 5 MG TABLET PO (09:10)
[2022-10-29] MEDS: Fluticasone Propionate Nasal 16 GM SPRAY 1 SPRAY NOSTRIL-B ×2 (09:10→22:57)
[2022-10-29] MEDS: Famotidine 20 MG TABLET PO ×2 (09:10→22:58)
[2022-10-29] MEDS: Lidocaine 4 % Patch ADH..PATCH 1 PATCH TRANSDERMA (09:13)
[2022-10-29 20:35] VITALS: BP 113/66; PULSE 70; RESP 18; TEMP 36.5; O2SAT 98
--- NOTE | 2022-10-29 21:32 | P.PNPSI_ITS ---
Subjective Subjective Date of Service: 10/29/22 Reason For Visit: Unspecified Depressive Disorder Brief Psychotic Di Subjective Notes: Conditional Voluntary Interim History: pt calmer denies current psychotic preoccupation positive family history of bipolar disorder daughter with PTSD denies history of yeimi Medication Compliance: Yes Side effects from medications: No Review of Systems COVID seems controlled Mental Status Exam Mental Status Exam Narrative: Mental Status Exam Narrative: Appearance: Casually dressed Behavior: Cooperative appropriate psychomotor: Within normal limits Speech: Normal volume and prosody Thought proccess logical and goal-directed Thought content: Future oriented no self-harming thoughts Mood: Euthymic Affect: Appropriate to mood full affect SI:denies HI:denies VH/AH:none no current spiritual vision Delusions: No evangelical preoccupation Insight/judgment: Good insight and judgment understands marijuana was problematic for her Memory/cog: Intact Diagnostics Vital Signs (24Hr): Vital Signs - 24 hr 10/29/22 06:00 10/29/22 20:35 Temperature 97.7 F 97.7 F Pulse Rate 83 70 Respiratory Rate 16 18 Blood Pressure 122/78 113/66 Pulse Oximetry 98 98 Oxygen Delivery Method Room Air Room Air BMI result Body Mass Index 33.4 Labs 10/24/22 07:21 Medications Medications Current Medications Acetaminophen (Acetaminophen 325 Mg Tablet) 650 mg PO Q6H PRN PRN Reason: Headache/Pain Mild Scale (1-3) Last Admin: 10/28/22 21:29 Dose: 650 mg Al Hydroxide/Mg Hydroxide (Magnesium Hydrox/Alum Hydrox 30 Ml Oral.Susp) 30 ml PO Q6H PRN PRN Reason: Heartburn/Nausea Atorvastatin Calcium (Atorvastatin Calcium 20 Mg Tablet) 20 mg PO DAILY [facility] Last Admin: 10/29/22 09:10 Dose: 20 mg Benzocaine (Throat Lozenge, Medicated Lozenge) 1 lozenge MUCOUS MEM Q2H PRN PRN Reason: Sore Throat Last Admin: 10/28/22 21:29 Dose: 1 lozenge Cyanocobalamin (Cyanocobalamin (Vitamin B-12) 1,000 Mcg Tablet) 1,000 mcg PO DAILY [facility] Last Admin: 10/29/22 09:10 Dose: 1,000 mcg Duloxetine HCl (Duloxetine Hcl 60 Mg Capsule.Dr) 60 mg PO DAILY [facility] Last Admin: 10/29/22 09:10 Dose: 60 mg Famotidine (Famotidine 20 Mg Tablet) 20 mg PO BID [facility] Last Admin: 10/29/22 09:10 Dose: 20 mg Fluticasone Propionate (Fluticasone Propionate Nasal 16 Gm [place]) 1 spray NOSTRIL-B BID [facility] Last Admin: 10/29/22 09:10 Dose: 1 spray Hydroxyzine HCl (Hydroxyzine Hcl 25 Mg Tablet) 25 mg PO TID PRN PRN Reason: Anxiety Last Admin: 10/27/22 20:59 Dose: 25 mg Lidocaine (Lidocaine 4 % Patch Adh..Patch) 1 patch TRANSDERMA DAILY [facility]; Protocol Last Admin: 10/29/22 09:13 Dose: 1 patch Lisinopril (Lisinopril 5 Mg Tablet) 5 mg PO DAILY [facility]; Protocol Last Admin: 10/29/22 09:10 Dose: 5 mg Magnesium Hydroxide (Milk Of Magnesia 30 Ml Oral.Susp) 30 ml PO DAILY PRN PRN Reason: Constipation Risperidone (Risperidone 1 Mg Tablet) 1 mg PO BEDTIME [facility] Last Admin: 10/28/22 21:30 Dose: 1 mg Trazodone HCl (Trazodone Hcl 50 Mg Tablet) 50 mg PO BEDTIME PRN PRN Reason: Insomnia Vitamin D (Cholecalciferol (Vitamin D3) 25 Mcg Tablet) 50 mcg PO DAILY [facility] Last Admin: 10/29/22 09:10 Dose: 50 mcg Allergies Allergies Allergy/AdvReac Type Severity Reaction Status Date / Time No Known Allergies Allergy Verified 10/23/22 21:15 Assessment & Plan Assessment & Plan (1) Severe manic bipolar 1 disorder with psychotic behavior: Status: Acute Code(s): F31.2 - Bipolar disorder, current episode manic severe with psychotic features Plan Ms. Rangel is a 52 year-old woman with hx of Bipolar disorder who was brought via EMS to [facility] ED due to increased evangelical preoccupations, disorganized speech after daughter went to pt's house and pt had shades down, house was disorganized (which daughter reported uncharacteristic of her), and pt was staring with minimal verbalization.Utox positive for cannabinoids, which she reports using recently at suggestion of her daughter to relax . Pt has prior hx of of psychosis, depression with evangelical preoccupation. She presents with mixed episode. Pt with hx of bipolar, may not have been treated properly as mostly prescribed antidepressants which was exacerbated by THC use. We discussed risks, benefits and alternative treatment options. Pt agreed to start risperidone. May consider mood stabilizer. PLAN 10/25- will lower risperidone d/t ortho hotn, if continues to report dizziness may want to consider different antipsychotic. Flonase for stuffy nose. 10/26: Patient reports feeling better today. Patient stated, I took a shower, I ate breakfast and taking my meds . Patient stated, I was seeing spirits but I'm no longer seeing them. I used to see black shadows 5 years ago; they never bothered me. Sometimes I hear voices but the voices protect me and would tell me if I'm in danger. They happen now and then . Pt denies SI/HI/VH/AH at this time. Patient reports she would like a referral to a Cheondoism psychiatrist and therapist ; social group worker aware. Pt asked for Risperidal to be changed to HS; dose change to 1mg PO bedtime. Pt educated regarding taking her time before standing and walking. 10/27: Patient c/o stuffy nose, sore throat and dizziness. Covid test ordered. Results pending. She reports feeling good mentally ; pt stated, I saw spirits at home but not here. The voices and seeing spirits all started in 2014, a year after my grandchild . I've only had anxiety and depression in my life. I think smoking marijuana did this to me . Pt is requesting to speak with pastoral services; RN notified. denies SI/HI/VH/AH. 10/28/22 Pt does report he is to is history of schizophrenia in the family his sister ascribes her symptoms as of is hallucinations altered perceptions to marijuana she did have a similar experience a number of years ago after her granddaughter as she is able to work normally is and is generally feels that Cymbalta has helped her to feels better on Risperdal educated regarding risks of psychosis with marijuana especially given his positive family history of schizophrenia no clear manic symptoms by history So far no severe COVID symptoms 10/29/2022 Patient seems significantly improved on relatively low-dose Risperdal 1 mg seems stable for discharge tomorrow has referrals for outpatient is asking for VNA no current psychosis mood calm future oriented rationally based Reason for continued inpatient stay Substantial Risk for: rapid decompensation Time Spent With Patient Time: Total time managing care of this patient today ____ minutes.
[2022-10-29] MEDS: Throat Lozenge, Medicated LOZENGE 1 LOZENGE MUCOUS MEM (22:58)
[2022-10-29] MEDS: risperiDONE 1 MG TABLET PO (22:58)
[2022-10-30 08:15] VITALS: BP 118/64; PULSE 65; RESP 16; TEMP 36.1; O2SAT 98
[2022-10-30] MEDS: Lidocaine 4 % Patch ADH..PATCH 1 PATCH TRANSDERMA (08:51)
[2022-10-30] MEDS: Fluticasone Propionate Nasal 16 GM SPRAY 1 SPRAY NOSTRIL-B (08:53)
[2022-10-30] MEDS: Cholecalciferol (Vitamin D3) 25 MCG TABLET 50 MCG PO (08:53)
[2022-10-30] MEDS: lisinopriL 5 MG TABLET PO (08:53)
[2022-10-30] MEDS: Atorvastatin Calcium 20 MG TABLET PO (08:53)
[2022-10-30] MEDS: DULoxetine HCl 60 MG CAPSULE.DR PO (08:54)
[2022-10-30] MEDS: Famotidine 20 MG TABLET PO (08:54)
[2022-10-30] MEDS: Cyanocobalamin (Vitamin B-12) 1,000 MCG TABLET 1000 MCG PO (08:54)
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
== END 2022-10-30 11:15 | disposition home or self-care (01) | DRG 753 ==
PROVIDERS: Social Worker; Admitting Provider Psychiatry & Neurology Psychiatry; Responsible Provider Registered Nurse; Visit Provider Psychiatry & Neurology Psychiatry
DX: F31.2 Bipolar disorder, current episode manic severe with psychotic features (principal); U07.1 COVID-19; E78.5 Hyperlipidemia, unspecified; F17.210 Nicotine dependence, cigarettes, uncomplicated; F43.10 Post-traumatic stress disorder, unspecified; I10 Essential (primary) hypertension; Z71.6 Tobacco abuse counseling; Z79.51 Long term (current) use of inhaled steroids; Z79.899 Other long term (current) drug therapy
CPT/HCPCS: 36415; 80053; 80061; 82607; 82746; 83036; 84443; 87635

== ENCOUNTER → 2022-10-23 19:38 | Outpatient (BNV) | payer OTHER, SELFPAY | PROVIDERS: Admitting Provider Psychiatry & Neurology Psychiatry; Responsible Provider Registered Nurse; Visit Provider Nurse Practitioner Acute Care | DX: I10 Essential (primary) hypertension (principal) | CPT/HCPCS: 99429 ==

== ENCOUNTER → 2022-10-23 19:38 | Outpatient (BNV) | payer OTHER, SELFPAY | PROVIDERS: Admitting Provider Psychiatry & Neurology Psychiatry; Responsible Provider Registered Nurse; Visit Provider Psychiatry & Neurology Psychiatry | DX: F31.2 Bipolar disorder, current episode manic severe with psychotic features (principal) | CPT/HCPCS: 99231; 99232; 99239 ==

== ENCOUNTER → 2022-10-23 19:38 | Outpatient (BNV) | payer OTHER, SELFPAY | PROVIDERS: Admitting Provider Psychiatry & Neurology Psychiatry; Visit Provider Social Worker | DX: F31.2 Bipolar disorder, current episode manic severe with psychotic features (principal) | CPT/HCPCS: 90792; 99231; 99232 ==